=== PATIENT | female | born 1935 ===

== ENCOUNTER 2021-06-24 07:45 | Inpatient (IN) | payer OTHER ==
[~2021-06-24] VITALS: Ht 137.2 cm; Wt 48.1 kg
[2021-06-24] MEDS ORDERED: NORVASC2.5 M1 PO (08:53)
[2021-06-24] MEDS ORDERED: PEPCI PO (08:53)
[2021-06-24] MEDS ORDERED: METFORMIN HCL500 MG PO (08:54)
[2021-06-24] MEDS ORDERED: COZAAR100 MG PO (08:55)
[2021-06-29] MEDS ORDERED: METFORMIN HCL500 M4 (08:57)
[2021-06-29] MEDS ORDERED: FAMOTIDINE40 MG (08:57)
[2021-06-29] MEDS ORDERED: LATANOPROST2.5 ML (08:57)
[2021-06-29] MEDS ORDERED: AZELASTINE137 MCG/0. (08:57)
[2021-06-29] MEDS ORDERED: PANTOPRAZOLE SO40 MG (08:57)
[2021-06-29] MEDS ORDERED: SIMVASTATIN20 MG (08:57)
[2021-07-01] MEDS ORDERED: OXYC1TAB9 PO (10:47)
[2021-07-01] MEDS ORDERED: INTEGRA PLUS C1 EACH PO (10:47)
[2021-07-01] MEDS ORDERED: XARELTO10 MG PO (10:47)
[2021-07-01] MEDS ORDERED: BACTRIM DS TAB1 EACH PO (10:47)
== END 2021-07-02 00:33 | disposition home or self-care (01) | DRG 470 ==
LOC: SURH 06-29 07:00 → SURG 06-29 07:49 → O/R 06-29 07:49 → SURG 06-29 12:45
PROVIDERS: ADMIT Orthopaedic Surgery Sports Medicine; ATTEND Orthopaedic Surgery Sports Medicine
PROC: 0SRD0J9 Replacement of Left Knee Joint with Synthetic Substitute, Cemented, Open Approach (ICD-10-PCS; principal; 2021-06-29 07:00)
DX: M17.12 Unilateral primary osteoarthritis, left knee (principal); I10 Essential (primary) hypertension; Z20.822 Contact with and (suspected) exposure to COVID-19